=== PATIENT | male | born 1960 | race American Indian/Alaskan Native ===

== ENCOUNTER 2017-11-29 10:15 | Emergency (ER) | payer MEDICAID ==
[2017-11-29 11:51] LABS: Basophils % (Auto) 0.4 % (0.0-1.8); Eosinophils # (Auto) 0.1 K/mm3 (0.0-0.4); Eosinophils % (Auto) 1.2 % (0.0-4.3); Hematocrit 50.1 % (35.5-45.6); Hemoglobin 17.4 gm/dl (11.8-15.2); Lymphocytes # (Auto) 3.9 K/mm3 (1.2-5.4); Lymphocytes % (Auto) 35.2 % (13.4-35.0); Mean Corpuscular HGB Conc 35 % (32-34); Mean Corpuscular Hemoglobin 31 pg (28-32); Mean Corpuscular Volume 89 fl (84-94); Monocytes # (Auto) 0.7 K/mm3 (0.0-0.8); Monocytes % (Auto) 6.1 % (0.0-7.3); Platelet Count 211 K/mm3 (140-440); Red Blood Count 5.62 M/mm3 (3.65-5.03); Red Cell Distribution Width 12.8 % (13.2-15.2)
[2017-11-29 11:53] LABS: BUN/Creatinine Ratio 14; Blood Urea Nitrogen 13 mg/dL (9-20); Calcium 9.8 mg/dL (8.4-10.2); Hemolysis Index 23
[2017-11-29 12:53] LABS: Bacteria,Urine 1+ /HPF (Negative); Bilirubin,Urine NEG (Negative); Blood,Urine NEG (Negative); Color,Urine Yellow (Yellow); Mucus,Urine FEW /HPF; Protein,Urine <15 mg/dL mg/dL (Negative); Urobilinogen,Urine < 2.0 mg/dL (<2.0)
[2017-11-29] MEDS ORDERED: NACL 0.9% 1000 ML 1,000 ML ONE (15:15)
[2017-11-29] MEDS ORDERED: HumuLIN R IV ONE (15:30)
[2017-11-29] MEDS ORDERED: NACL 0.9% 1000 ML 1,000 ML IV ONE ×2 (15:31→17:00)
--- NOTE | 2017-11-29 16:09 | XRay Report ---
FINAL REPORT EXAM: XR SPINE LUMBOSACRAL 2-3V HISTORY: ongoing back pain TECHNIQUE: Three views lumbar spine. PRIORS: None currently available. FINDINGS: There is a transitional vertebra labeled as S1. Grade 1 anterior subluxation and [id number] disc space narrowing at L5-S1. Mild disc space narrowing with grade 1 posterior subluxation at L3-L5. Otherwise disc spaces are uniform. Vertebral body heights are intact. No fracture. Posterior facet arthropathy L4-L5. Mild dextrocurvature or scoliosis of the thoracolumbar spine with mild rotatory component. No suspicious osseous lesions. No vertebral anomalies. SI joints are unremarkable. Mild degenerative changes in both hips. IMPRESSION: Mild dextrocurvature or scoliosis of the thoracolumbar spine with rotatory component. Transitional vertebra. Degenerative discs.
--- NOTE | 2017-11-29 18:03 | Emergency Department Report ---
ED Back Pain/Injury HPI - General Chief Complaint: Back Pain/Injury Stated Complaint: BACK PAIN Time Seen by Provider: 11/29/17 15:30 Source: patient Limitations: No Limitations - History of Present Illness Initial Comments: 57-year-old male with a past medical history of chronic back pain presents to the hospital complaining of continued right-sided back pain with right leg paresthesia for years and 2 weeks of increased urinary frequency and dry mouth. Accu-Chek noted to be high in the ED and patient denies known previous history of diabetes. Patient states he recently got insurance and attends to follow up regarding his pain. He denies any recent change or injury. Pain is rated 9/10 intensity, constant, worse with palpation and movement. No urinary incontinence reported. - Related Data Previous Rx's Medication Instructions Recorded Last Taken Type Acetaminophen/Codeine 1 tab PO Q6H PRN #20 tab 08/10/14 Unknown Rx [Acetaminophen-Codeine #3 TAB] Ibuprofen [Motrin] 800 mg PO Q8H #30 tablet 08/10/14 Unknown Rx methylPREDNISolone [Medrol Dose 4 mg PO DAILY 6 Days tab 08/10/14 Unknown Rx Jordy] Ibuprofen [Motrin] 800 mg PO Q8HR PRN #30 tablet 11/29/17 Unknown Rx metFORMIN [Glucophage] 500 mg PO BID #60 tablet 11/29/17 Unknown Rx methOCARBAMOL [Robaxin TAB] 500 mg PO TID PRN #30 tablet 11/29/17 Unknown Rx traMADol [Ultram 50 MG tab] 50 mg PO Q6HR PRN #14 tablet 11/29/17 Unknown Rx Allergies Allergy/AdvReac Type Severity Reaction Status Date / Time No Known Allergies Allergy Verified 08/10/14 05:01 ED Review of Systems ROS: Stated complaint: BACK PAIN Other details as noted in HPI Comment: All other systems reviewed and negative ED Past Medical Hx - Past Medical History Previous Medical History?: Yes Hx GERD: Yes Additional medical history: BACK PAIN - Surgical History Past Surgical History?: No - Social History Smoking Status: Current Every Day Smoker Substance Use Type: Marijuana - Medications Home Medications: Home Medications Medication Instructions Recorded Confirmed Last Taken Type Acetaminophen/Codeine 1 tab PO Q6H PRN #20 tab 08/10/14 Unknown Rx [Acetaminophen-Codeine #3 TAB] Ibuprofen [Motrin] 800 mg PO Q8H #30 tablet 08/10/14 Unknown Rx methylPREDNISolone [Medrol Dose 4 mg PO DAILY 6 Days tab 08/10/14 Unknown Rx Jordy] Ibuprofen [Motrin] 800 mg PO Q8HR PRN #30 tablet 11/29/17 Unknown Rx metFORMIN [Glucophage] 500 mg PO BID #60 tablet 11/29/17 Unknown Rx methOCARBAMOL [Robaxin TAB] 500 mg PO TID PRN #30 tablet 11/29/17 Unknown Rx traMADol [Ultram 50 MG tab] 50 mg PO Q6HR PRN #14 tablet 11/29/17 Unknown Rx ED Physical Exam - General Limitations: No Limitations - Other Other exam information: General: No limitations, patient is alert in no acute distress Head exam: Atraumatic, normocephalic Eyes exam: Normal appearance, pupils equal reactive to light, extraocular movements intact ENT: Moist mucous membrane, normal oropharynx Neck exam: Normal inspection, full range of motion, no meningismus nontender Respiratory exam: Clear to auscultation bilateral, no wheezes, rales, crackles Cardiovascular: Normal rate and rhythm, normal heart sounds Abdomen: Soft, nondistended, and nontender, with normal bowel sounds, no rebound, or guarding Extremity: Full range of motion normal inspection no deformity Back: Normal Inspection, full range of motion, no midline tenderness. Right sided muscle tenderness to palpation Neurologic: Alert, oriented x3, cranial nerves intact, decreased sensation along the medial right foot and right leg. 5/5 strength equal bilaterally Psychiatric: normal affect, normal mood Skin: Warm, dry, intact ED Course Vital Signs 11/29/17 11:13 Temperature 98.5 F Pulse Rate 81 Respiratory 18 Rate Blood Pressure 132/82 O2 Sat by Pulse 99 Oximetry ED Medical Decision Making - Lab Data Result diagrams: 11/29/17 11:26 11/29/17 11:26 Lab Results 11/29/17 11/29/17 11/29/17 Range/Units 11:22 11:26 11:26 WBC 11.0 (4.5-11.0) K/mm3 RBC 5.62 H (3.65-5.03) M/mm3 Hgb 17.4 H (11.8-15.2) gm/dl Hct 50.1 H (35.5-45.6) % MCV 89 (84-94) fl MCH 31 (28-32) pg MCHC 35 H (32-34) % RDW 12.8 L (13.2-15.2) % Plt Count 211 (140-440) K/mm3 Lymph % (Auto) 35.2 H (13.4-35.0) % [place] % (Auto) 6.1 (0.0-7.3) % Eos % (Auto) 1.2 (0.0-4.3) % Baso % (Auto) 0.4 (0.0-1.8) % Lymph # 3.9 (1.2-5.4) K/mm3 [place] # 0.7 (0.0-0.8) K/mm3 Eos # 0.1 (0.0-0.4) K/mm3 Baso # 0.0 (0.0-0.1) K/mm3 Seg Neutrophils % 57.1 (40.0-70.0) % Seg Neutrophils # 6.3 (1.8-7.7) K/mm3 VBG pH (7.320-7.420) Sodium 130 L (137-145) mmol/L Potassium 4.7 (3.6-5.0) mmol/L Chloride 92.4 L (98-107) mmol/L Carbon Dioxide 23 (22-30) mmol/L Anion Gap 19 mmol/L BUN 13 (9-20) mg/dL Creatinine 0.9 (0.8-1.5) mg/dL Estimated GFR > 60 ml/min BUN/Creatinine Ratio 14 % Glucose 497 H (75-100) mg/dL POC Glucose 462 H (70-105) Calcium 9.8 (8.4-10.2) mg/dL Urine Color (Yellow) Urine Turbidity (Clear) Urine pH (5.0-7.0) Ur Specific [place] (1.003-1.030) Urine Protein (Negative) mg/dL Urine Glucose (UA) (Negative) mg/dL Urine Ketones (Negative) mg/dL Urine Blood (Negative) Urine Nitrite (Negative) Urine Bilirubin (Negative) Urine Urobilinogen (<2.0) mg/dL Ur Leukocyte Esterase (Negative) Urine WBC (Auto) (0.0-6.0) /HPF Urine RBC (Auto) (0.0-6.0) /HPF U Epithel Cells (Auto) (0-13.0) /HPF Urine Bacteria (Auto) (Negative) /HPF Urine Mucus /HPF 11/29/17 11/29/17 11/29/17 Range/Units 11:26 11:43 15:19 WBC (4.5-11.0) K/mm3 RBC (3.65-5.03) M/mm3 Hgb (11.8-15.2) gm/dl Hct (35.5-45.6) % MCV (84-94) fl MCH (28-32) pg MCHC (32-34) % RDW (13.2-15.2) % Plt Count (140-440) K/mm3 Lymph % (Auto) (13.4-35.0) % [place] % (Auto) (0.0-7.3) % Eos % (Auto) (0.0-4.3) % Baso % (Auto) (0.0-1.8) % Lymph # (1.2-5.4) K/mm3 [place] # (0.0-0.8) K/mm3 Eos # (0.0-0.4) K/mm3 Baso # (0.0-0.1) K/mm3 Seg Neutrophils % (40.0-70.0) % Seg Neutrophils # (1.8-7.7) K/mm3 VBG pH 7.308 L (7.320-7.420) Sodium (137-145) mmol/L Potassium (3.6-5.0) mmol/L Chloride (98-107) mmol/L Carbon Dioxide (22-30) mmol/L Anion Gap mmol/L BUN (9-20) mg/dL Creatinine (0.8-1.5) mg/dL Estimated GFR ml/min BUN/Creatinine Ratio % Glucose (75-100) mg/dL POC Glucose 395 H (70-105) Calcium (8.4-10.2) mg/dL Urine Color Yellow (Yellow) Urine Turbidity Clear (Clear) Urine pH 5.0 (5.0-7.0) Ur Specific [place] 1.035 H (1.003-1.030) Urine Protein <15 mg/dl (Negative) mg/dL Urine Glucose (UA) >=500 (Negative) mg/dL Urine Ketones Tr (Negative) mg/dL Urine Blood Neg (Negative) Urine Nitrite Neg (Negative) Urine Bilirubin Neg (Negative) Urine Urobilinogen < 2.0 (<2.0) mg/dL Ur Leukocyte Esterase Neg (Negative) Urine WBC (Auto) 1.0 (0.0-6.0) /HPF Urine RBC (Auto) 3.0 (0.0-6.0) /HPF U Epithel Cells (Auto) < 1.0 (0-13.0) /HPF Urine Bacteria (Auto) 1+ (Negative) /HPF Urine Mucus Few /HPF 11/29/17 11/29/17 Range/Units 16:27 17:31 WBC (4.5-11.0) K/mm3 RBC (3.65-5.03) M/mm3 Hgb (11.8-15.2) gm/dl Hct (35.5-45.6) % MCV (84-94) fl MCH (28-32) pg MCHC (32-34) % RDW (13.2-15.2) % Plt Count (140-440) K/mm3 Lymph % (Auto) (13.4-35.0) % [place] % (Auto) (0.0-7.3) % Eos % (Auto) (0.0-4.3) % Baso % (Auto) (0.0-1.8) % Lymph # (1.2-5.4) K/mm3 [place] # (0.0-0.8) K/mm3 Eos # (0.0-0.4) K/mm3 Baso # (0.0-0.1) K/mm3 Seg Neutrophils % (40.0-70.0) % Seg Neutrophils # (1.8-7.7) K/mm3 VBG pH (7.320-7.420) Sodium (137-145) mmol/L Potassium (3.6-5.0) mmol/L Chloride (98-107) mmol/L Carbon Dioxide (22-30) mmol/L Anion Gap mmol/L BUN (9-20) mg/dL Creatinine (0.8-1.5) mg/dL Estimated GFR ml/min BUN/Creatinine Ratio % Glucose (75-100) mg/dL POC Glucose 237 H 134 H (70-105) Calcium (8.4-10.2) mg/dL Urine Color (Yellow) Urine Turbidity (Clear) Urine pH (5.0-7.0) Ur Specific [place] (1.003-1.030) Urine Protein (Negative) mg/dL Urine Glucose (UA) (Negative) mg/dL Urine Ketones (Negative) mg/dL Urine Blood (Negative) Urine Nitrite (Negative) Urine Bilirubin (Negative) Urine Urobilinogen (<2.0) mg/dL Ur Leukocyte Esterase (Negative) Urine WBC (Auto) (0.0-6.0) /HPF Urine RBC (Auto) (0.0-6.0) /HPF U Epithel Cells (Auto) (0-13.0) /HPF Urine Bacteria (Auto) (Negative) /HPF Urine Mucus /HPF - Radiology Data Radiology results: report reviewed Lumbar IMPRESSION: Mild dextrocurvature or scoliosis of the thoracolumbar spine with rotatory component. Transitional vertebra. Degenerative discs. - Medical Decision Making new onset DM no dka improved with insulin 10 units and 1 L NS will be d/zohreh on Metformin PMD follow-up back pain chronic no acute injury xray + degenerative disease Chronic radiculopathy Pain meds will be prescribed Outpatient follow-up with orthopedic - Differential Diagnosis lumbar strain, degenerative disc disease, radiculopathy, DKA, diabetes, UTI Critical Care Time: No Critical care attestation.: If time is entered above; I have spent that time in minutes in the direct care of this critically ill patient, excluding procedure time. ED Disposition Clinical Impression: Chronic back pain, Chronic lumbar radiculopathy, Diabetes mellitus, new onset Disposition: DC-01 TO HOME OR SELFCARE Is pt being admited?: No Does the pt Need Aspirin: No Condition: Stable Instructions: Diabetes Mellitus Type 2 in Adults (ED), Lumbar Radiculopathy (ED ), Chronic Back Pain (ED) Additional Instructions: Take medication at prescribed. Return if symptoms worsen. Follow with either primary care doctor provided with a doctor of your choice. Also follow with orthopedic regarding your back symptoms and numbness. Prescriptions: Ibuprofen [Motrin] 800 mg PO Q8HR PRN #30 tablet PRN Reason: Pain metFORMIN [Glucophage] 500 mg PO BID #60 tablet methOCARBAMOL [Robaxin TAB] 500 mg PO TID PRN #30 tablet PRN Reason: Muscle Spasm traMADol [Ultram 50 MG tab] 50 mg PO Q6HR PRN #14 tablet PRN Reason: Pain Referrals: OBIEKWE,ONWURA, MD [Staff Physician] - 3-5 Days JAYANT FAN MD [Staff Physician] - 3-5 Days PRESTON AGUIRRE MD [Staff Physician] - 3-5 Days (Orthopedic surgeon) Time of Disposition: 18:03
[2017-11-29 18:18] VITALS: BP 134/78
== END 2017-11-29 18:17 | disposition home or self-care (01) ==
LOC: ED 10:15
DX: M54.16 Radiculopathy, lumbar region (principal); G89.29 Other chronic pain; E11.9 Type 2 diabetes mellitus without complications; K21.9 Gastro-esophageal reflux disease without esophagitis; F17.200 Nicotine dependence, unspecified, uncomplicated; F12.10 Cannabis abuse, uncomplicated; Z79.84 Long term (current) use of oral hypoglycemic drugs
CPT/HCPCS: 36415; 72100; 80048; 81001; 82805; 82962; 85025; 96361; 96374; 99284; J7030; J1815

== ENCOUNTER 2017-12-26 12:21 | Emergency (ER) | payer MEDICAID ==
[2017-12-26 12:35] VITALS: BP 134/83
[2017-12-26] MEDS ORDERED: NACL 0.9% 1000 ML 1,000 ML IV ONE (13:24)
--- NOTE | 2017-12-26 13:28 | Emergency Department Report ---
ED General Adult HPI - General Chief complaint: Hyperglycemia Stated complaint: HIGH BLOOD SUGAR Time Seen by Provider: 12/26/17 13:22 Source: patient Mode of arrival: Ambulatory Limitations: No Limitations - History of Present Illness Initial comments: Patient is a 57-year-old [place] male who is presenting with hyperglycemia. Patient states he ate some toast and some pain about his morning blood sugar was 250. Patient states he is only had urinary frequency there is no dysuria nausea vomiting abdominal cramps. Patient is large that his blood sugar was so high. Patient was just recently diagnosed with hyperglycemia and placed on 500 mg metformin twice a day. Patient did not see a primary care physician as of yet. - Related Data Previous Rx's Medication Instructions Recorded Last Taken Type Acetaminophen/Codeine 1 tab PO Q6H PRN #20 tab 08/10/14 Unknown Rx [Acetaminophen-Codeine #3 TAB] Ibuprofen [Motrin] 800 mg PO Q8H #30 tablet 08/10/14 Unknown Rx methylPREDNISolone [Medrol Dose 4 mg PO DAILY 6 Days tab 08/10/14 Unknown Rx Jordy] Ibuprofen [Motrin] 800 mg PO Q8HR PRN #30 tablet 11/29/17 Unknown Rx methOCARBAMOL [Robaxin TAB] 500 mg PO TID PRN #30 tablet 11/29/17 Unknown Rx traMADol [Ultram 50 MG tab] 50 mg PO Q6HR PRN #14 tablet 11/29/17 Unknown Rx metFORMIN [Glucophage] 750 mg PO BID #60 tablet 12/26/17 Unknown Rx Allergies Allergy/AdvReac Type Severity Reaction Status Date / Time No Known Allergies Allergy Verified 08/10/14 05:01 ED Review of Systems ROS: Stated complaint: HIGH BLOOD SUGAR Other details as noted in HPI Comment: All other systems reviewed and negative ED Past Medical Hx - Past Medical History Hx GERD: Yes Additional medical history: BACK PAIN - Social History Smoking Status: Current Every Day Smoker Substance Use Type: Marijuana - Medications Home Medications: Home Medications Medication Instructions Recorded Confirmed Last Taken Type Acetaminophen/Codeine 1 tab PO Q6H PRN #20 tab 08/10/14 Unknown Rx [Acetaminophen-Codeine #3 TAB] Ibuprofen [Motrin] 800 mg PO Q8H #30 tablet 08/10/14 Unknown Rx methylPREDNISolone [Medrol Dose 4 mg PO DAILY 6 Days tab 08/10/14 Unknown Rx Jordy] Ibuprofen [Motrin] 800 mg PO Q8HR PRN #30 tablet 11/29/17 Unknown Rx methOCARBAMOL [Robaxin TAB] 500 mg PO TID PRN #30 tablet 11/29/17 Unknown Rx traMADol [Ultram 50 MG tab] 50 mg PO Q6HR PRN #14 tablet 11/29/17 Unknown Rx metFORMIN [Glucophage] 750 mg PO BID #60 tablet 12/26/17 Unknown Rx ED Physical Exam - General Limitations: No Limitations General appearance: alert, in no apparent distress - Head Head exam: Present: atraumatic, normocephalic - Eye Eye exam: Present: normal appearance - ENT ENT exam: Present: mucous membranes moist - Neck Neck exam: Present: normal inspection - Respiratory Respiratory exam: Present: normal lung sounds bilaterally. Absent: respiratory distress - Cardiovascular Cardiovascular Exam: Present: regular rate, normal rhythm. Absent: systolic murmur, diastolic murmur, rubs, gallop - GI/Abdominal GI/Abdominal exam: Present: soft, normal bowel sounds - Rectal Rectal exam: Present: deferred - Extremities Exam Extremities exam: Present: normal inspection - Back Exam Back exam: Present: normal inspection - Neurological Exam Neurological exam: Present: alert, oriented X3 - Psychiatric Psychiatric exam: Present: normal affect, normal mood - Skin Skin exam: Present: warm, dry, intact, normal color. Absent: rash ED Course Vital Signs 12/26/17 12:29 Temperature 98.2 F Pulse Rate 74 Respiratory 16 Rate Blood Pressure 134/83 O2 Sat by Pulse 98 Oximetry ED Medical Decision Making - Medical Decision Making Patient looks generally well. He is in good spirits and does not appear ill. I do not believe the patient is in diabetic ketoacidosis. Patient does not have ketotic breath. Patient was given a liter of IV fluids. Going up his dose of metformin [birth year]1949 twice a day. Patient be discharged home with follow-up with primary care. Critical care attestation.: If time is entered above; I have spent that time in minutes in the direct care of this critically ill patient, excluding procedure time. ED Disposition Clinical Impression: Hyperglycemia Disposition: DC-01 TO HOME OR SELFCARE Is pt being admited?: No Does the pt Need Aspirin: No Condition: Stable Instructions: How to Check Your Blood Sugar (ED), Meal Planning with Diabetes Exchanges (DC), Diabetes Mellitus Type 2 in Adults (ED) Prescriptions: metFORMIN [Glucophage] 750 mg PO BID #60 tablet Referrals: PRIMARY CARE,MD [Primary Care Provider] - 3-5 Days
== END 2017-12-26 15:04 | disposition home or self-care (01) ==
LOC: ED 12:21
DX: E11.10 Type 2 diabetes mellitus with ketoacidosis without coma (principal); K21.9 Gastro-esophageal reflux disease without esophagitis; F17.200 Nicotine dependence, unspecified, uncomplicated; F12.90 Cannabis use, unspecified, uncomplicated
CPT/HCPCS: 96360; 99282; J7030